=== PATIENT | male | born 1980 | race Caucasian/White ===

== ENCOUNTER 2017-05-14 09:07 | Outpatient (RCR) | payer OTHER ==
--- NOTE | 2017-04-26 08:25 | Diagnostic Imaging Report ---
INDICATION: Nephrolithiasis followup KUB 8:32 AM Bowel gas pattern is normal. There are no pathologic masses or calcifications. IMPRESSION: Negative abdomen Dictated by: Dictated on workstation # [id number]
[~2017-05-14 09:07] MED LIST: ACHYD1T PO; CIPR500T78 PO; HYDR1TAB8 OP; HYOS0.1216 PO; ONDA-42 SL; PHEN200T27 PO; TMSL.4C PO
== END 2017-07-25 | disposition home or self-care (01) ==
LOC: LAB 09:07
PROVIDERS: ATTEND Urology
DX: N20.9 Urinary calculus, unspecified (principal)
CPT/HCPCS: 36415; 74018; 82140; 82340; 82507; 82570; 83735; 83945; 83986; 84105; 84133; 84300; 84392; 84560

== ENCOUNTER → 2019-05-01 | Outpatient (CLI) | payer OTHER ==
--- NOTE | 2019-05-01 09:27 | Diagnostic Imaging Report ---
Supine abdomen at 857 hours. INDICATION: Bilateral nephrolithiasis. The previous abdomen exam of 04/26/2017 failed to show any sign of nephrolithiasis. Both kidneys were obscured, however by bowel gas and fecal material. The previous CT abdomen/pelvis exam of 03/10/2015 did note a 3.4 mm nonobstructive calculus within the left kidney. There is also a 2 mm calculus in the superior pole of the right kidney. On this exam, there is now 4.2 mm calcification overlying the inferior pole of the left kidney. There is no sign of nephrolithiasis on the right but the inferior pole of the right kidney continues to be obscured by bowel gas and fecal material. There is no evidence of pathological calcification along the path of the ureters or in the pelvis. There is no acute abnormality in the abdomen itself. IMPRESSION: 1. The 4.2 mm calcification overlying the left kidney is most likely intrarenal. If further study is desired, then repeat CT abdomen/pelvis exam should be obtained. 2. There is no other evidence for nephrolithiasis or urolithiasis. Dictated by: Dictated on workstation # [id number]
== END ==
LOC: RAD 08:20
PROVIDERS: ATTEND Urology
DX: N20.0 Calculus of kidney (principal)
CPT/HCPCS: 74018

== ENCOUNTER → 2020-07-20 | Outpatient (CLI) | payer OTHER ==
--- NOTE | 2020-07-20 18:13 | Diagnostic Imaging Report ---
EXAMINATION: Abdominal radiographs, single supine view. DATE: July 20, 2020. CLINICAL INDICATION: 39-year-old male, bilateral renal stones. Follow-up exam. COMPARISON: May 01, 2019. COMMENTS: The previously noted radiodensity overlying the left kidney is not well seen on the current exam. There is no currently radiographically visible calcification overlying either kidney or the expected locations of the ureters. The bowel gas pattern is unremarkable. IMPRESSION: 1. No current radiographically visible renal or ureteral stone. Dictated by: Dictated on workstation # [id number]
== END ==
LOC: RAD 14:43
PROVIDERS: ATTEND Urology
DX: N20.0 Calculus of kidney (principal)
CPT/HCPCS: 74018